=== PATIENT | female | born 1965 | race Caucasian/White ===

== ENCOUNTER → 2023-03-18 | Outpatient (CLI) | payer OTHER ==
[~2023-03-18] MED LIST: RELAFEN
[2023-03-19 05:07] LABS: RUBELLA AB IGG-REFLAB 9.94 index (Immune >0.99)
[2023-03-19 06:06] LABS: RUBEOLA (MEASLES) IGG 76.2 AU/mL (Immune >16.4)
== END | disposition home or self-care (01) ==
LOC: LABMN 10:44
PROVIDERS: ATTEND Internal Medicine
DX: Z02.1 Encounter for pre-employment examination (principal)
CPT/HCPCS: 86706; 86735; 86762; 86765; 86787

== ENCOUNTER 2023-11-07 14:14 | Emergency (ER) | payer OTHER ==
[~2023-11-07] VITALS: Ht 162.6 cm; Wt 77.3 kg
[2023-11-07 14:21] VITALS: TEMP 97.8
[2023-11-07] MEDS ORDERED: SEMA1PEN3 SQ (14:25)
[2023-11-07] MEDS ORDERED: METO50 PO (14:41)
[2023-11-07] MEDS ORDERED: EMPA10TA3 PO (14:41)
[2023-11-07] MEDS ORDERED: PIOG15TA66 PO (14:41)
[2023-11-07] MEDS ORDERED: NALT380S2 IM (14:41)
[2023-11-07] MEDS ORDERED: PANT40TA54 PO (14:41)
[2023-11-07] MEDS ORDERED: SUMA50TA17 PO (14:41)
[2023-11-07] MEDS ORDERED: LOSA-382 PO (14:41)
[2023-11-07] MEDS ORDERED: PREG25CA19 PO (14:41)
[2023-11-07] MEDS ORDERED: METF-446 PO (14:41)
[2023-11-07] MEDS ORDERED: HYDR25TA PO (14:41)
[2023-11-07] MEDS ORDERED: TRAZ-252 PO (14:41)
[2023-11-07] MEDS ORDERED: ONDANSETRON HCL 4 MG TABLET PO ONE (14:45)
[2023-11-07] MEDS ORDERED: BACITRACIN 0.9 GM PACKET OINTMENT TP ONE (14:45)
[2023-11-07] MEDS ORDERED: ACETAMINOPHEN 500 MG TABLET PO ONE (14:45)
[2023-11-07] MEDS ORDERED: PERTUSS(ACELL),DIPH,TET VAC/PF 0.5 ML SYRINGE IM. ONE (14:45)
[2023-11-07 15:31] LABS: GLUCOMETER DEV NAME(LOC) ERT.5; GLUCOSE,POINT OF CARE 176 MG/DL (70-110)
[2023-11-07 17:38] VITALS: BP 138/78; PULSE 75; RESP 16
== END 2023-11-07 17:40 | disposition home or self-care (01) ==
LOC: EMS 14:14
DX: S01.01XA Laceration without foreign body of scalp, initial encounter (principal); E11.9 Type 2 diabetes mellitus without complications; F32.A Depression, unspecified; I10 Essential (primary) hypertension; F10.90 Alcohol use, unspecified, uncomplicated; Z90.710 Acquired absence of both cervix and uterus; Z98.51 Tubal ligation status; W19.XXXA Unspecified fall, initial encounter; Y93.89 Activity, other specified; Y92.89 Other specified places as the place of occurrence of the external cause; Y99.8 Other external cause status
CPT/HCPCS: 99285; 70450; 82962; 72125; 90715; 90471; 12001; Q0162

== ENCOUNTER 2023-11-15 22:33 | Emergency (ER) | payer OTHER ==
[~2023-11-15] VITALS: Ht 162.6 cm; Wt 77.3 kg
[~2023-11-15 22:33] MED LIST changes: +EMPA10TA3 PO; +HYDR25TA PO; +LOSA-382 PO; +METF-446 PO; +METO50 PO; +NALT380S2 IM; +PANT40TA54 PO; +PIOG15TA66 PO; +PREG25CA19 PO; -RELAFEN; +SEMA1PEN3 SQ; +SUMA50TA17 PO; +TRAZ-252 PO
[2023-11-15 22:40] VITALS: BP 141/81; PULSE 83; RESP 15; TEMP 98.4
== END 2023-11-15 23:07 | disposition home or self-care (01) ==
LOC: EMS 22:33
DX: S01.01XD Laceration without foreign body of scalp, subsequent encounter (principal); F32.A Depression, unspecified; E11.9 Type 2 diabetes mellitus without complications; I10 Essential (primary) hypertension; F10.90 Alcohol use, unspecified, uncomplicated; Z48.02 Encounter for removal of sutures; Z90.710 Acquired absence of both cervix and uterus; Z98.51 Tubal ligation status; Z88.8 Allergy status to other drugs, medicaments and biological substances; X58.XXXD Exposure to other specified factors, subsequent encounter
CPT/HCPCS: 99281; Z7502

== ENCOUNTER 2023-12-28 02:35 | Emergency (ER) | payer OTHER ==
[~2023-12-28] VITALS: Ht 162.6 cm; Wt 76.4 kg
[2023-12-28 02:54] VITALS: BP 125/80; PULSE 92; RESP 16; TEMP 97.5
[2023-12-28] MEDS: ACETAMINOPHEN 500 MG TABLET PO ONE (03:08)
[2023-12-28] MEDS: KETOROLAC TROMETHAMINE 30 MG/ML VIAL IM ONE (03:08)
[2023-12-28] MEDS: LIDOCAINE 5% TRANSDERMAL PATCH TD ONE (03:12)
== END 2023-12-28 03:24 | disposition home or self-care (01) ==
LOC: EMS 02:35
DX: S46.011A Strain of muscle(s) and tendon(s) of the rotator cuff of right shoulder, initial encounter (principal); S16.1XXA Strain of muscle, fascia and tendon at neck level, initial encounter; F10.90 Alcohol use, unspecified, uncomplicated; F32.A Depression, unspecified; E11.9 Type 2 diabetes mellitus without complications; I10 Essential (primary) hypertension; Z90.710 Acquired absence of both cervix and uterus; Z98.51 Tubal ligation status; Z88.8 Allergy status to other drugs, medicaments and biological substances; X58.XXXA Exposure to other specified factors, initial encounter; Y93.89 Activity, other specified; Y92.89 Other specified places as the place of occurrence of the external cause; Y99.8 Other external cause status; Y90.9 Presence of alcohol in blood, level not specified
CPT/HCPCS: 99283; 96372; J1885

== ENCOUNTER 2024-08-08 20:01 | Emergency (ER) | payer OTHER ==
[~2024-08-08] VITALS: Ht 162.6 cm; Wt 77.3 kg
[2024-08-08 20:11] VITALS: BP 171/89; PULSE 69; RESP 16; TEMP 98.5; O2SAT 99
[2024-08-08] MEDS: KETOROLAC TROMETHAMINE 30 MG/ML VIAL IM ONE (22:42)
[2024-08-08] MEDS: TraMADol HCL 50 MG TABLET PO ONE (22:42)
[2024-08-08] MEDS ORDERED: CYCL-448 PO (23:52)
== END 2024-08-09 00:02 | disposition home or self-care (01) ==
LOC: EMS 20:01
DX: S16.1XXA Strain of muscle, fascia and tendon at neck level, initial encounter (principal); M62.838 Other muscle spasm; M25.511 Pain in right shoulder; E11.9 Type 2 diabetes mellitus without complications; I10 Essential (primary) hypertension; F17.210 Nicotine dependence, cigarettes, uncomplicated; Z88.3 Allergy status to other anti-infective agents; Z88.5 Allergy status to narcotic agent; W22.8XXA Striking against or struck by other objects, initial encounter; Y93.89 Activity, other specified; Y92.89 Other specified places as the place of occurrence of the external cause; Y99.0 Civilian activity done for income or pay
CPT/HCPCS: 99284; 72040; 72072; 73030; 96372; J1885